=== PATIENT | female | born 1990 | race American Indian/Alaskan Native ===

== ENCOUNTER 2016-12-07 15:14 | Emergency (ER) | payer MEDICAID ==
[2016-12-07 15:58] VITALS: BP 105/65
[2016-12-07 16:15] LABS: Basophils % (Auto) 0.5 % (0.0-1.8); Eosinophils % (Auto) 1.5 % (0.0-4.3); Hematocrit 38.6 % (30.3-42.9); Mean Corpuscular HGB Conc 31 % (30-34); Mean Corpuscular Volume 74 fl (79-97); Platelet Count 425 K/mm3 (140-440); Red Blood Count 5.25 M/mm3 (3.65-5.03); Red Cell Distribution Width 18.5 % (13.2-15.2); White Blood Count 8.1 K/mm3 (4.5-11.0)
[2016-12-07 16:16] LABS: Mean Corpuscular Hemoglobin 23 pg (28-32)
[2016-12-07 18:51] LABS: Bacteria,Urine 4+ /HPF (Negative); Bilirubin,Urine NEG (Negative); Blood,Urine LG (Negative); Ketones,Urine NEG (Negative); Leukocyte Esterase,Urine NEG (Negative); Mucus,Urine 3+ /HPF; Nitrite,Urine POS (Negative); Protein,Urine <15 mg/dL mg/dL (Negative)
--- NOTE | 2016-12-07 20:09 | Ultrasound Report ---
FINAL REPORT EXAM: US OB \T\lt; = 14 WEEKS FETUS HISTORY: bleeding COMPARISON: None available. TECHNIQUE: Several real-time grayscale and color Doppler images were obtained. Transabdominal and transvaginal exam. FINDINGS: No IUP or adnexal masses are demonstrated. The uterus measures 8.3 x 4.8 x 6.0 centimeters. Endometrial stripe 9 millimeters. Gross vascular flow to the ovaries. The right ovary measures 2.3 x 0.9 x 1.1 centimeters. Left ovary measures 2.5 x 1.6 x 1.7 centimeters. IMPRESSION: No IUP or adnexal mass demonstrated. Correlation with serial beta HCGs and followup exam is suggested. Uterus and ovaries are grossly unremarkable.
--- NOTE | 2016-12-07 20:09 | Ultrasound Report ---
FINAL REPORT EXAM: US OB TRANSVAGINAL HISTORY: bleeding 8 weeks COMPARISON: None available. TECHNIQUE: Several real-time grayscale and color Doppler images were obtained. Transabdominal and transvaginal exam. FINDINGS: No IUP or adnexal masses are demonstrated. The uterus measures 8.3 x 4.8 x 6.0 centimeters. Endometrial stripe 9 millimeters. Gross vascular flow to the ovaries. The right ovary measures 2.3 x 0.9 x 1.1 centimeters. Left ovary measures 2.5 x 1.6 x 1.7 centimeters. IMPRESSION: No IUP or adnexal mass demonstrated. Correlation with serial beta HCGs and followup exam is suggested. Uterus and ovaries are grossly unremarkable.
== END 2016-12-08 02:00 | disposition left against medical advice (07) ==
LOC: ED 15:14
DX: Z53.21 Procedure and treatment not carried out due to patient leaving prior to being seen by health care provider (principal)
CPT/HCPCS: 36415; 76801; 76817; 81001; 84702; 84703; 85025

== ENCOUNTER 2016-12-17 12:05 | Emergency (ER) | payer MEDICAID ==
[2016-12-17 12:56] VITALS: BP 117/81
[2016-12-17 13:45] LABS: Basophils % (Auto) 1.4 % (0.0-1.8); Eosinophils % (Auto) 1.4 % (0.0-4.3); Hematocrit 33.7 % (30.3-42.9); Mean Corpuscular HGB Conc 33 % (30-34); Mean Corpuscular Volume 72 fl (79-97); Platelet Count 430 K/mm3 (140-440); Red Blood Count 4.67 M/mm3 (3.65-5.03); Red Cell Distribution Width 17.6 % (13.2-15.2); White Blood Count 7.8 K/mm3 (4.5-11.0)
[2016-12-17 13:47] LABS: Mean Corpuscular Hemoglobin 24 pg (28-32)
[2016-12-17 13:57] LABS: BUN/Creatinine Ratio 27.14; Blood Urea Nitrogen 19 mg/dL (7-17); Calcium 9.3 mg/dL (8.4-10.2); Carbon Dioxide 24 mmol/L (22-30); Glucose 83 mg/dL (65-100)
[2016-12-17 13:58] LABS: Anion Gap 18 mmol/L; Chloride 100.7 mmol/L (98-107); Potassium 4.4 mmol/L (3.6-5.0); Sodium 138 mmol/L (137-145)
[2016-12-17 14:49] LABS: Bacteria,Urine 4+ /HPF (Negative); Bilirubin,Urine NEG (Negative); Blood,Urine SM (Negative); Ketones,Urine NEG (Negative); Leukocyte Esterase,Urine MOD (Negative); Mucus,Urine 3+ /HPF; Nitrite,Urine POS (Negative); Urobilinogen,Urine < 2.0 mg/dL (<2.0)
--- NOTE | 2016-12-17 19:00 | Ultrasound Report ---
FINAL REPORT EXAM: US OB \T\lt; = 14 WEEKS FETUS HISTORY: VAGINAL BLEEDING WITH TECHNIQUE: Transabdominal pelvic ultrasound was performed and multiple grayscale sonographic images were obtained of the uterus and adnexa PRIORS: Ultrasound from 12/07/2016 and endovaginal ultrasound from 12/17/2016 FINDINGS: Uterus measures approximately 7.3 x 4.6 centimeters. Endometrial stripe thickness is approximately 8 millimeters. A gestational sac is not identified in the uterus, or elsewhere. Ovaries were not visualized during the exam. IMPRESSION: 1. A gestational sac is not identified in the uterus, or elsewhere. Possibility of ectopic is not excluded given the history provided. Recommend further assessment with serial quantitative beta HCG and repeat ultrasound if indicated. 2. Please refer to report from endovaginal ultrasound from 12/17/2016 for additional information.
--- NOTE | 2016-12-17 19:02 | Ultrasound Report ---
FINAL REPORT EXAM: US OB TRANSVAGINAL HISTORY: VAGINAL BLEEDING WITH TECHNIQUE: Endovaginal ultrasound was performed and multiple grayscale sonographic images were obtained of the uterus and adnexa PRIORS: Ultrasound 12/07/2016 and transabdominal pelvic ultrasound from 12/17/2016 FINDINGS: Endometrial stripe thickness is 7.4 millimeters. A gestational sac is not identified in the uterus, or elsewhere. Right and left ovary measure approximately 3.4 x 1.4 x 2.1 centimeter and 3 x 1.9 x 3.1 centimeters, respectively. There is a 12 millimeter cyst in the left ovary. IMPRESSION: 1. A gestational sac is not identified in the uterus, or elsewhere. Possibility of ectopic is not excluded given the history provided. Recommend further assessment with serial quantitative beta HCG and repeat ultrasound if indicated. 2. Please refer to report from transabdominal pelvic ultrasound from 12/17/2016 for additional information.
== END 2016-12-17 20:15 | disposition left against medical advice (07) ==
LOC: ED 12:05
DX: O26.891 Other specified pregnancy related conditions, first trimester (principal); R10.9 Unspecified abdominal pain; Z53.21 Procedure and treatment not carried out due to patient leaving prior to being seen by health care provider
CPT/HCPCS: 36415; 76801; 76817; 80048; 81001; 84702; 84703; 85025; 86850; 86900; 86901

== ENCOUNTER 2017-10-10 09:39 | Emergency (ER) | payer MEDICAID ==
[2017-10-10 09:56] VITALS: BP 101/63
[2017-10-10 10:21] LABS: Basophils % (Auto) 0.2 % (0.0-1.8); Eosinophils # (Auto) 0.1 K/mm3 (0.0-0.4); Eosinophils % (Auto) 0.9 % (0.0-4.3); Hematocrit 30.7 % (30.3-42.9); Hemoglobin 9.7 gm/dl (10.1-14.3); Lymphocytes # (Auto) 1.5 K/mm3 (1.2-5.4); Lymphocytes % (Auto) 18.9 % (13.4-35.0); Mean Corpuscular HGB Conc 32 % (30-34); Mean Corpuscular Hemoglobin 23 pg (28-32); Mean Corpuscular Volume 73 fl (79-97); Monocytes # (Auto) 0.6 K/mm3 (0.0-0.8); Monocytes % (Auto) 7.2 % (0.0-7.3); Platelet Count 353 K/mm3 (140-440); Red Blood Count 4.21 M/mm3 (3.65-5.03); Red Cell Distribution Width 17.1 % (13.2-15.2)
[2017-10-10 11:18] LABS: Bacteria,Urine 2+ /HPF (Negative); Bilirubin,Urine NEG (Negative); Blood,Urine SM (Negative); Color,Urine Yellow (Yellow); Mucus,Urine 3+ /HPF; Protein,Urine <15 mg/dL mg/dL (Negative)
--- NOTE | 2017-10-10 11:59 | Emergency Department Report ---
ED HPI - General Chief complaint: Vaginal Bleeding Stated complaint: VAG BLEEDING/ POSS MISCARRIAGE Time Seen by Provider: 10/10/17 11:58 Source: patient Mode of arrival: Ambulatory Limitations: No Limitations - History of Present Illness Initial comments: 27-year-old female history of one miscarriage presents with complaint of crampy lower abdominal pain. Patient denies fevers or chills. States she is slightly nauseous but has not vomited. Is awake alert and oriented 3 accompanied by significant other at bedside. States her last mentioned. Was at the end of July 2017 but she is not sure if she was actually . Patient states she has been having intermittent crampy lower abdominal pain. Patient states that she had some intermittent spotting throughout the week and had slightly heavy vaginal bleeding yesterday which has since subsided and then stopped. Patient denies smoking drinking or drug use. States she has followed up with [facility] in the past but has not seen him in a long time. MD Complaint: abdominal pain, vaginal bleeding, vaginal discharge Onset/Timin -: week(s) Severity: mild Quality: cramping Consistency: intermittent Improves with: none Worsens with: none Associated symptoms: vaginal bleeding, abdominal pain :: Yes Number of weeks : 9 Last menstrual period: 07/12/17 - Related Data : 5 Para: 3 Ab: 1 Previous Rx's Medication Instructions Recorded Last Taken Type Acetaminophen [Acetaminophen TAB] 500 mg PO Q6HR PRN #20 tablet 10/10/17 Unknown Rx Nitrofurantoin Monohyd/M-Cryst 100 mg PO BID #14 capsule 10/10/17 Unknown Rx [Macrobid 100 mg Capsule] 21/Iron Fu/Folic Acid 1 each PO QDAY #30 tablet 10/10/17 Unknown Rx [ Complete Caplet] Allergies Allergy/AdvReac Type Severity Reaction Status Date / Time No Known Allergies Allergy Verified 12/17/16 12:58 ED Review of Systems ROS: Stated complaint: VAG BLEEDING/ POSS MISCARRIAGE Other details as noted in HPI Constitutional: denies: chills, fever Eyes: denies: eye pain, eye discharge, vision change ENT: denies: ear pain, throat pain Respiratory: denies: cough, shortness of breath, wheezing Cardiovascular: denies: chest pain, palpitations Endocrine: no symptoms reported Gastrointestinal: denies: abdominal pain, nausea, diarrhea Genitourinary: denies: urgency, dysuria, discharge Musculoskeletal: denies: back pain, joint swelling, arthralgia Skin: denies: rash, lesions Neurological: denies: headache, weakness, paresthesias Psychiatric: denies: anxiety, depression Hematological/Lymphatic: denies: easy bleeding, easy bruising ED Past Medical Hx - Past Medical History Additional medical history: hx of heart murmur as a child. - Social History Smoking Status: Never Smoker - Medications Home Medications: Home Medications Medication Instructions Recorded Confirmed Last Taken Type Acetaminophen [Acetaminophen TAB] 500 mg PO Q6HR PRN #20 tablet 10/10/17 Unknown Rx Nitrofurantoin Monohyd/M-Cryst 100 mg PO BID #14 capsule 10/10/17 Unknown Rx [Macrobid 100 mg Capsule] 21/Iron Fu/Folic Acid 1 each PO QDAY #30 tablet 10/10/17 Unknown Rx [ Complete Caplet] ED Physical Exam - General Limitations: No Limitations General appearance: alert, in no apparent distress - Head Head exam: Present: atraumatic, normocephalic - Eye Eye exam: Present: normal appearance, PERRL, EOMI - ENT ENT exam: Present: mucous membranes moist - Neck Neck exam: Present: normal inspection - Respiratory Respiratory exam: Present: normal lung sounds bilaterally. Absent: respiratory distress - Cardiovascular Cardiovascular Exam: Present: regular rate, normal rhythm. Absent: systolic murmur, diastolic murmur, rubs, gallop - GI/Abdominal GI/Abdominal exam: Present: soft, normal bowel sounds - Extremities Exam Extremities exam: Present: normal inspection - Back Exam Back exam: Present: normal inspection - Neurological Exam Neurological exam: Present: alert, oriented X3 - Psychiatric Psychiatric exam: Present: normal affect, normal mood - Skin Skin exam: Present: warm, dry, intact, normal color. Absent: rash ED Course Vital Signs 10/10/17 09:52 Temperature 98.5 F Pulse Rate 77 Respiratory 14 Rate Blood Pressure 101/63 O2 Sat by Pulse 100 Oximetry ED Medical Decision Making - Lab Data Result diagrams: 10/10/17 09:58 - Medical Decision Making A/P: Threatened miscarriage, , asymptomatic bacteria 1-follow-up with [facility], patient states she follows up at [facility] and has been there in the past 2-RH positive 3-urinalysis shows moderate leukocyte esterase with treated empirically with Macrobid. Tylenol when necessary for crampy pain 4- advised patient any time a woman has any bleeding less than 20 weeks of this is a threatened miscarriage. Currently patient has an IUP that is approximately 9 weeks by ultrasound with heart activity. Will start patient on vitamins. 5- case discussed with Dr. Cortez including review of ultrasound images Critical care attestation.: If time is entered above; I have spent that time in minutes in the direct care of this critically ill patient, excluding procedure time. ED Disposition Clinical Impression: Threatened miscarriage in early , Asymptomatic bacteriuria during Disposition: TO HOME OR SELFCARE Is pt being admited?: No Does the pt Need Aspirin: No Condition: Stable Instructions: Threatened Miscarriage (ED) Prescriptions: Acetaminophen [Acetaminophen TAB] 500 mg PO Q6HR PRN #20 tablet PRN Reason: Pain , Severe (7-10) Nitrofurantoin Monohyd/M-Cryst [Macrobid 100 mg Capsule] 100 mg PO BID #14 capsule 21/Iron Fu/Folic Acid [ Complete Caplet] 1 each PO QDAY #30 tablet Referrals: [facility] [Provider Group] - 3-5 Days Forms: Accompanied Note, Work/School Release Form(ED) Time of Disposition: 12:33
--- NOTE | 2017-10-10 12:36 | Ultrasound Report ---
OB ULTRASOUND : 10/10/17 CLINICAL: with vaginal bleeding. FINDINGS: Gestation: Prince Position: Transverse with head to the maternal right. Amniotic Fluid: Normal No subchorionic hemorrhage. Placenta: Anterior with no previa or hemorrhage. Placental Grade: 0 Heart Rate: 151 BPM Cervical length: 3.3 cm. The cervix is closed. Measurements as follows: BPD: 2.8 = 15 weeks, 0 days HC: 10.3 = 14 weeks, 6 days AC: 8.9 = 15 weeks, 1 day FL: 1.6 = 14 weeks, 5 days HC/AC ratio = 1.16 Cephalic index = 84.1 Ovaries were not identified. IMPRESSION: Single live intrauterine fetus at 15 weeks, 0 days based on ultrasound measurements. EDC based on ultrasound is 04/03/18. No evidence of intrauterine hemorrhage and no explanation for vaginal bleeding.
== END 2017-10-10 12:42 | disposition home or self-care (01) ==
LOC: ED 09:39
DX: O20.0 Threatened abortion (principal); R82.71 Bacteriuria; Z3A.20 20 weeks gestation of pregnancy
CPT/HCPCS: 36415; 76805; 81001; 84702; 85025; 86850; 86900; 86901

== ENCOUNTER 2017-11-08 13:38 | Emergency (ER) | payer MEDICAID ==
[2017-11-08 14:04] VITALS: BP 112/70
[2017-11-08 15:47] LABS: Bilirubin,Urine NEG (Negative); Blood,Urine LG (Negative); Color,Urine Yellow (Yellow); Mucus,Urine 3+ /HPF
[2017-11-08 16:06] LABS: Red Blood Count 4.21 M/mm3 (3.65-5.03)
[2017-11-08 16:07] LABS: Basophils % (Auto) 0.2 % (0.0-1.8); Eosinophils % (Auto) 0.1 % (0.0-4.3); Hematocrit 29.5 % (30.3-42.9); Hemoglobin 9.6 gm/dl (10.1-14.3); Lymphocytes # (Auto) 1.2 K/mm3 (1.2-5.4); Lymphocytes % (Auto) 10.4 % (13.4-35.0); Mean Corpuscular HGB Conc 33 % (30-34); Mean Corpuscular Hemoglobin 23 pg (28-32); Mean Corpuscular Volume 70 fl (79-97); Monocytes # (Auto) 0.5 K/mm3 (0.0-0.8); Monocytes % (Auto) 4.1 % (0.0-7.3); Platelet Count 346 K/mm3 (140-440); Red Cell Distribution Width 16.6 % (13.2-15.2)
--- NOTE | 2017-11-08 17:28 | Emergency Department Report ---
ED HPI - General Chief complaint: Vaginal Bleeding Stated complaint: COMPLICATIONS WITH Time Seen by Provider: 11/08/17 15:31 Source: patient Mode of arrival: Ambulatory Limitations: No Limitations - History of Present Illness Initial comments: This is a 27-year-old female nontoxic, well nourished in appearance, no acute signs of distress presents to the ED with c/o of vaginal bleeding x2 days. Patient came in for a miscarriage last month. Patient stated that 2 days ago she noticed blood clots that felt it was the fetus. Patient denies any abdominal or pelvic pain. Patient denies any vaginal discharge or foul odor. Patient denies any nausea, vomiting, chest pain, shortness of breathe, fever, chills, headache, stiff neck, numbness, tingling. Patient denies any urinary symptoms. Patient denies any allergies or PMH. MD Complaint: vaginal bleeding -: days(s) (2) Radiation: none Severity scale (0 -10): 0 Improves with: none Worsens with: none Associated symptoms: vaginal bleeding. denies: nausea/vomiting, vaginal discharge, abdominal pain, dysuria, headache, vision changes, malaise, dysparuenia, rash, seizure, shortness of breath, syncope, weakness :: Yes Pre- care: none - Related Data Previous Rx's Medication Instructions Recorded Last Taken Type Acetaminophen [Acetaminophen TAB] 500 mg PO Q6HR PRN #20 tablet 10/10/17 Unknown Rx Nitrofurantoin Monohyd/M-Cryst 100 mg PO BID #14 capsule 10/10/17 Unknown Rx [Macrobid 100 mg Capsule] 21/Iron Fu/Folic Acid 1 each PO QDAY #30 tablet 10/10/17 Unknown Rx [ Complete Caplet] Allergies Allergy/AdvReac Type Severity Reaction Status Date / Time No Known Allergies Allergy Verified 12/17/16 12:58 ED Review of Systems ROS: Stated complaint: COMPLICATIONS WITH Other details as noted in HPI Constitutional: denies: chills, fever Eyes: denies: eye pain, eye discharge, vision change ENT: denies: ear pain, throat pain Respiratory: denies: cough, shortness of breath, wheezing Cardiovascular: denies: chest pain, palpitations Endocrine: no symptoms reported Gastrointestinal: denies: abdominal pain, nausea, diarrhea Genitourinary: abnormal menses. denies: urgency, dysuria, frequency, hematuria , discharge Musculoskeletal: denies: back pain, joint swelling, arthralgia Skin: denies: rash, lesions Neurological: denies: headache, weakness, paresthesias Psychiatric: denies: anxiety, depression Hematological/Lymphatic: denies: easy bleeding, easy bruising ED Past Medical Hx - Past Medical History Previous Medical History?: Yes Additional medical history: hx of heart murmur as a child. - Surgical History Past Surgical History?: No - Social History Smoking Status: Never Smoker Substance Use Type: None - Medications Home Medications: Home Medications Medication Instructions Recorded Confirmed Last Taken Type Acetaminophen [Acetaminophen TAB] 500 mg PO Q6HR PRN #20 tablet 10/10/17 Unknown Rx Nitrofurantoin Monohyd/M-Cryst 100 mg PO BID #14 capsule 10/10/17 Unknown Rx [Macrobid 100 mg Capsule] 21/Iron Fu/Folic Acid 1 each PO QDAY #30 tablet 10/10/17 Unknown Rx [ Complete Caplet] ED Physical Exam - General Limitations: No Limitations General appearance: alert, in no apparent distress - Head Head exam: Present: atraumatic, normocephalic - Eye Eye exam: Present: normal appearance Pupils: Present: normal accommodation - ENT ENT exam: Present: normal exam, mucous membranes moist - Neck Neck exam: Present: normal inspection, full ROM. Absent: tenderness, meningismus, lymphadenopathy - Respiratory Respiratory exam: Present: normal lung sounds bilaterally. Absent: respiratory distress, wheezes, rales, rhonchi, stridor, chest wall tenderness, accessory muscle use, decreased breath sounds, prolonged expiratory - Cardiovascular Cardiovascular Exam: Present: regular rate, normal rhythm, normal heart sounds. Absent: bradycardia, tachycardia, irregular rhythm, systolic murmur, diastolic murmur, rubs, gallop - GI/Abdominal GI/Abdominal exam: Present: soft, normal bowel sounds. 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 Absent: erythema, swelling, lesions, lacerations, ecchymosis, bleeding Speculum exam: Present: normal speculum exam, vaginal bleeding, other ( [employer] sergeant Nicole tool keeper present during exam). Absent: erythema, vaginal discharge, cervical discharge, foreign body, tissue, laceration Bi-manual exam: Present: normal bi-manual exam, other ([employer] police sergeant Nicole tool keeper present during exam). Absent: cervical motion tendernes, adnexal tenderness, adnexal mass, uterine enlargement, uterine tenderness - Extremities Exam Extremities exam: Present: normal inspection, full ROM, normal capillary refill. Absent: tenderness - Back Exam Back exam: Present: normal inspection, full ROM. Absent: tenderness, CVA tenderness (R), CVA tenderness (L), muscle spasm, paraspinal tenderness, vertebral tenderness, rash noted - Neurological Exam Neurological exam: Present: alert, oriented X3, normal gait - Psychiatric Psychiatric exam: Present: normal affect, normal mood - Skin Skin exam: Present: warm, dry, intact, normal color. Absent: rash ED Course Vital Signs 11/08/17 13:56 Temperature 98.1 F Pulse Rate 103 H Respiratory 18 Rate Blood Pressure 112/70 O2 Sat by Pulse 100 Oximetry - Reevaluation(s) Reevaluation #1: 11/08/17 17:31 Patient is speaking in full sentences with no signs of distress noted. Reevaluation #2: 11/08/17 18:26 Patient was called for the 3rd time and answered. I instructed to the patient that she has abnormal ultrasound report and that she should come back to the [facility] but patient hung up the phone on me. - Consultations Consultation #1: 11/08/17 18:18 Patient has been consulted with Lauren Fontanez (DIRECTOR OF MAINTENANCE) about patient history, physical exam, and labs/US report and stated this is vasa previa and patient needs to follow-up outpatient for repeat ultrasound. ED Medical Decision Making - Lab Data Result diagrams: 11/08/17 15:39 - Medical Decision Making This is a 27-year-old female presents with threatened miscarriage. Patient is stable and was examined by me. Normal abdominal exam. US OB obtained and dictated by the radiologist with single IUP heart beat of 154 and possible vasa previa vs. cicumvallate placenta. Lauren Fontanez was consulted and stated safe for patient to be discharged with follow-up. I did order a doppler US but patient left AMA without telling anyone. Ua obtained. Quantative serum test obtained. RH factor positive. Labs within normal limits. I called patient 2 times at the phone number listed on file but patient did not answer. Critical care attestation.: If time is entered above; I have spent that time in minutes in the direct care of this critically ill patient, excluding procedure time. ED Disposition Clinical Impression: Threatened miscarriage Disposition: DC-07 LEFT AGAINST MED ADVICE Is pt being admited?: No Does the pt Need Aspirin: No Condition: Stable Instructions: Threatened Miscarriage (ED) Additional Instructions: Follow-up with a DIRECTOR OF MAINTENANCE doctor in 24 hours for abnormal US report or if symptoms worsen and continue return to emergency room as soon as possible. Referrals: [facility] [Provider Group] - 3-5 Days GINA VALLADARES MD [Staff Physician] - 3-5 Days [facility] [Primary Care Provider] - 3-5 Days ALFREDO VALLADARES MD [Staff Physician] - 3-5 Days Forms: Work/School Release Form(ED)
--- NOTE | 2017-11-08 18:02 | Ultrasound Report ---
FINAL REPORT EXAM: US OB > = 14 WEEKS FETUS HISTORY: vaginal bleeding TECHNIQUE: Pelvic obstetrical sonographic imaging was performed. FINDINGS: There is a single live intrauterine gestation in cephalic presentation. Fundal placenta grade 0. Amniotic fluid index subjectively is within normal limits. heart rate measures 154 beats per minute. Cervical length measures 3.3 centimeters and is closed. measurements with estimated gestational age as follows: Biparietal diameter 19 weeks 3 days Head circumference 19 weeks 1 day Abdominal circumference 18 weeks 3 days Femur length 18 weeks 5 days Average sonographic gestational age is 19 weeks 0 days. Estimated due date by today's ultrasound is 04/04/2018 HC/AC 1.28 Cephalic index 82.2 Estimated weight 248 grams +/-37 grams correlating with 18th percentile. anatomic survey as follows: Choroid plexus, cisterna magna, cerebellum, lateral ventricle, stomach, kidneys, bladder, diaphragm, four-chamber heart, heart, three-vessel cord, cord insertion, limited assessment of the spine due to position. No sonographic evidence for abruption. Echogenic avascular material identified at the internal cervical os measuring 4.4 x 1.1 x 3.7 centimeters. Finding may represent vasa previa or possibly circumvallate placenta. Recommend level 3 ultrasound IMPRESSION: Single live intrauterine gestation at 19 weeks 0 days. Fundal placenta. Echogenic nonvascular material seen at the internal cervical os which has a membranous appearance, question placental variant. Recommend level 3 ultrasound. No sonographic evidence for abruption although ultrasound has low sensitivity for abruption. No subchorionic hemorrhage identified. Cervix measures 3.3 centimeters, closed.
== END 2017-11-08 18:28 | disposition left against medical advice (07) ==
LOC: ED 13:38
DX: O20.0 Threatened abortion (principal); Z3A.19 19 weeks gestation of pregnancy
CPT/HCPCS: 36415; 76805; 81001; 84702; 85025